=== PATIENT | male | born 1940 | race Caucasian/White ===

== ENCOUNTER 2020-08-28 11:01 | Outpatient (CLI) | payer MEDICARE ==
--- NOTE | 2020-08-28 12:44 | Mammography Report ---
DEXA BONE DENSITY SCAN INDICATION / CLINICAL INFORMATION: SCREENING. 80 years Male COMPARISON: None available. LUMBAR SPINE, L1-L4: - Bone mineral density (BMD) = 0.935 g/cm2. - T-score = -1.4 - Z-score = -0.3 Change (%) since most recent prior (if available): None available. LEFT HIP, NECK : - Bone mineral density (BMD) = 0.707 g/cm2. - T-score = -1.6 - Z-score = -0.6 Change (%) since most recent prior (if available): None available. IMPRESSION: 1. WHO Classification: Osteopenia. Fracture Risk: Increased. 2. 10-Year Fracture Risk (FRAX) = Major Osteoporotic 4.8% / Hip: 1.6% FRAX generally not reported for patients with normal or osteoporotic BMD, in [id number] avni ents younger than age 50, or in patients undergoing pharmacotherapy BMD Reporting Guidelines (ISCD, 2015) BMD Reporting in Postmenopausal Women and in Men Age 50 and Older - T-scores are preferred. - The WHO densitometric classification is applicable. BMD Reporting in Females Prior to Menopause and in Males Younger Than Age 50 - Z-scores, not T-scores, are preferred. This is particularly important in children. - A Z-score of -2.0 or lower is defined as below the expected range for age, and a Z-score above -2.0 is within the expected range for age. - Osteoporosis cannot be diagnosed in men under age 50 on the basis of BMD alone. - The WHO diagnostic criteria may be applied to women in the menopausal transition. http://www.iscd.org/official-positions/6749-nvrr-ffqckwuc-positions-adult/ Signer Name: Ron Courtney MD Signed: 08/28/2020 12:39 PM Workstation Name: [email or web address]
== END 2020-08-28 11:02 | disposition home or self-care (01) ==
LOC: MAMMO 11:01
PROVIDERS: ATTEND Internal Medicine
DX: M85.89 Other specified disorders of bone density and structure, multiple sites (principal); S22.31XD Fracture of one rib, right side, subsequent encounter for fracture with routine healing; X58.XXXD Exposure to other specified factors, subsequent encounter
CPT/HCPCS: 77080

== ENCOUNTER 2021-08-31 10:33 | Outpatient (CLI) | payer MEDICARE ==
[2021-08-31 11:52] LABS: Basophils # (Auto) 0.1 K/mm3 (0.0-0.1); Basophils % (Auto) 0.8 % (0.0-1.8); Eosinophils # (Auto) 0.7 K/mm3 (0.0-0.4); Eosinophils % (Auto) 10.4 % (0.0-4.3); Hematocrit 47.7 % (35.5-45.6); Hemoglobin 15.7 gm/dl (11.8-15.2); Lymphocytes # (Auto) 1.3 K/mm3 (1.2-5.4); Lymphocytes % (Auto) 19.6 % (13.4-35.0); Mean Corpuscular HGB Conc 33 % (32-34); Mean Corpuscular Volume 88 fl (84-94); Monocytes # (Auto) 0.5 K/mm3 (0.0-0.8); Monocytes % (Auto) 7.3 % (0.0-7.3); Platelet Count 250 K/mm3 (140-440); Red Blood Count 5.43 M/mm3 (3.65-5.03); Red Cell Distribution Width 14.5 % (13.2-15.2)
[2021-08-31 12:12] LABS: Alanine Aminotransferase 8 units/L (7-56); Albumin 4.5 g/dL (3.9-5); BUN/Creatinine Ratio 9; Blood Urea Nitrogen 10 mg/dL (9-20); Chol/HDL Ratio 3.83 %; HDL Cholesterol 59 mg/dL (40-59); Hemolysis Index 18; LDL Cholesterol,Direct 148 mg/dL (50-130)
[2021-09-02 16:41] LABS: Vitamin D, 25-OH, D2 <4 ng/mL
== END 2021-08-31 10:34 | disposition home or self-care (01) ==
LOC: LABHHL 10:33
PROVIDERS: ATTEND Internal Medicine
DX: E78.5 Hyperlipidemia, unspecified (principal); R73.03 Prediabetes; R97.20 Elevated prostate specific antigen [PSA]; E55.9 Vitamin D deficiency, unspecified; Z00.00 Encounter for general adult medical examination without abnormal findings
CPT/HCPCS: 36415; 80053; 80061; 82306; 83036; 84443; 85025